=== PATIENT | female | born 1930 | race Caucasian/White ===

== ENCOUNTER 2018-01-21 01:19 | Inpatient (IN) | payer OTHER ==
[~2018-01-21] VITALS: Ht 154.9 cm; Wt 69.1 kg
[~2018-01-21 01:19] MED LIST: HYDROCHLOROTHIA50 M1 PO; LISINOPRIL20 M1 PO; LOPRESSOR100 M1 PO
[2018-01-21] MEDS ORDERED: MIRALAX17 G1 PO (13:36)
[2018-01-21] MEDS ORDERED: ASPIRIN EC325 M2 PO (13:36)
[2018-01-21] MEDS ORDERED: COLACE100 M1 PO (13:36)
[2018-01-21] MEDS ORDERED: DILAUDID2 M1 PO (13:36)
--- NOTE | 2018-01-21 13:43 | Patient Discharge Instructions ---
Discharge Instructions General Discharge Information You were seen/treated for: osteoarthritis right knee You had these procedures: right total knee replacement Watch for these problems: Increasing pain despite the use of pain medication Increasing redness, warmth or swelling Drainage of any type from incision Inability to bear weight on operative leg Persistent nausea and vomiting Fever greater than 101.5 degrees Call Surgeon to remove: [place] (wound check in 2 weekw) Other wound care: Please keep wound clean and dry. No ointments or lotions of any type on or near incision. Your dressing will be changed by your nurse on the second day after your surgery. Daily dry dressing changes are recommended each day thereafter. Do not soak your wound- no tub baths/swimming. You may shower 48hr after surgery. Special Instructions: Aspirin: You are taking this medication to help prevent blood clot formation. Please take with food to protect your stomach lining. Please take as directed. Constipation: Pain medication can cause constipation. It is recommended that you take Colace and Miralax each day. Discontinue this medication if you develop loose stool or diarrhea. If you wish to continue this medication, it is available over the counter. If you are unable to move your bowels or unable to pass gas and are developing bloating, nausea, or vomiting as a result, please contact your doctor. Diet Continue normal diet: Yes Recommended Diet: Regular Activity Full Activity/No Limits: No Activity Self Limited: Yes Activity Limited to: Walking with Assistance Acute Coronary Syndrome Inclusion Criteria At DC or during hospital stay patient has or had the following: ACS DIAGNOSIS No Discharge Core Measures Meds if any: Prescribed or Continued at Discharge Meds if any: NOT Prescribed or Continued at Discharge Congestive Heart Failure Inclusion Criteria At DC or during hospital stay patient has or had the following: CHF DIAGNOSIS No Discharge Core Measures Meds if any: Prescribed or Continued at Discharge Meds if any: NOT Prescribed or Continued at Discharge Cerebrovascular accident Inclusion Criteria At DC or during hospital stay patient has or had the following: CVA/TIA Diagnosis No Discharge Core Measures Meds if any: Prescribed or Continued at Discharge Meds if any: NOT Prescribed or Continued at Discharge Venous thromboembolism Inclusion Criteria VTE Diagnosis No VTE Type NONE VTE Confirmed by (Test) NONE Discharge Core Measures - Per Current guidelines, there needs to be overlap - treatment for the first 5 days of Warfarin therapy. - If discharged on Warfarin prior to 5 days of - overlap therapy, the patient will need to be - assessed for post discharge needs including - *Post discharge parental anticoagulation - *Warfarin and/or parental anticoagulation education - *Follow up date to check INR post discharge Meds if any: Prescribed or Continued at Discharge Note: Overlap Therapy is Warfarin and Anticoagulant Meds if any: NOT Prescribed or Continued at Discharge
--- NOTE | 2018-01-21 13:47 | Surgical Discharge Summary ---
Visit Information Visit Dates Admission Date: 01/21/18 Discharge Date: 01/24/2018 History of Present Illness Chief Complaint: right knee pain Medical History Cardiovascular: hypertension, hyperlipidemia Isolation History: Standard Surgical History Pertinent Surgical History: non-contributory Review of Systems: See H and P Hospital Course Course Attending Physician: Maxx Tillman MD Primary Care Physician: Shirley HERNANDEZ,Robert Alva Hospital Course: Patient was admitted to the hospital for an elective total joint replacement. Procedure was tolerated well and patient was transferred to a general surgical floor. Diet was advanced and tolerated. Physical therapy performed evaluation and treatment. Patient suffered from acute blood loss anemia and required a transfusion of 2 units of packed red blood cells. She responded nicely. She also had mild acute kidney injury with a creatinine of of 1.4 postop day #1, after IV fluids, this resolves, last creatinine was 0.9. At time of hospital discharge, vital signs were stable, neurovascular status was intact, and pain was controlled with the use of oral pain medications. Follow up with Dr. Tillman in 6 weeks from date of surgery. Please call his office to schedule/confirm this appointment. Complications: Acute blood loss anemia. Resolved Acute kidney injury resolved Allergies: Coded Allergies: No Known Allergies (01/16/18) Significant Procedures: right total knee replacement Pertinent Lab Results: none Disposition Summary Disposition Principal Diagnosis: right knee osteoarthritis Additional Diagnosis: Status post right total knee arthroplasty Discharge Disposition: SNF Discharge Instructions General Discharge Information Code Status: Full Code Patient's Diet: regular Patient's Activity: ad yadi, self limiting Follow-Up Instructions/Appts: [address] Tillman Medications at Discharge Discharge Medications: Continue taking these medications: Metoprolol Tartrate (Lopressor) 100 MG TABLET 1 Tablet ORAL TWICE DAILY Comments: Last Taken: 01/24/18 Time: 929 Lisinopril (Lisinopril) 20 MG TABLET 1 Tablet ORAL DAILY Comments: Last Taken: 01/24/18 Time: 929 Hydrochlorothiazide (Hydrochlorothiazide) 50 MG TABLET 1 Tablet ORAL DAILY Comments: Last Taken: 01/24/18 Time: 929 Start taking the following new medications: Aspirin (Ecotrin*) 325 MG TABLET. 1 Tablet ORAL TWICE DAILY Qty = 60 No Refills Comments: Last Taken: 01/24/18 Time: 929 Docusate Sodium (Colace) 100 MG CAPSULE 1 Capsule ORAL TWICE DAILY Qty = 14 No Refills Comments: Last Taken: 01/24/18 Time: 0930 Polyethylene Glycol 3350 (Miralax) 17 GRAM POWD.PACK 1 Packet ORAL DAILY Qty = 7 No Refills Instructions: dissolve in water Comments: Last Taken: 01/23/18 Time: 9AM Hydromorphone HCl (Dilaudid) 2 MG TABLET 1-2 Tablet ORAL EVERY 4-6 HOURS NEEDED as needed for PAIN Qty = 36 No Refills Comments: Last Taken: 01/24/18 Time: 11AM Copies To: Maxx Tillman MD
--- NOTE | 2018-01-21 13:49 | Admission Core Measures ---
Acute Coronary Syndrome (CM) ACS Core Measures Acute Coronary Syndrome Diagnosis No Congestive Heart Failure (NEW) CHF Core Measures Congestive Heart Failure Diagnosis No Cerebrovascular Accident CVA Core Measures CVA/TIA Diagnosis No Venous Thromboembolism VTE Core Justin (View Protocol) VTE Risk Factors Surgery No Mechanical VTE Prophylaxis d/t N/A MechProphylax Ordered No VTE Pharm Prophylaxis d/t NA PharmProphylax ordered Problem List As ranked by this Provider includes Assessment & Plan 1. Localized osteoarthritis of right knee HOME MEDS Home Med List Aspirin (Ecotrin*) 325 MG TABLET.DR 1 TAB PO BID DVT PROPHALAXIS Docusate Sodium (Colace) 100 MG CAPSULE 1 CAP PO BID PREVENT CONSTIPATION Hydrochlorothiazide 50 MG TABLET 1 TAB PO DAILY BP (Reported) Hydromorphone HCl (Dilaudid) 2 MG TABLET 1-2 TAB PO Q4-6 PRN PRN PAIN Lisinopril 20 MG TABLET 1 TAB PO DAILY BP (Reported) Metoprolol Tartrate (Lopressor) 100 MG TABLET 1 TAB PO BID BP (Reported) Polyethylene Glycol 3350 (Miralax) 17 GRAM POWD.PACK 1 PAC PO DAILY PREVENTION CONSTIPATION
--- NOTE | 2018-01-21 14:12 | Operative Report ---
Operative/Inv Procedure Report Surgery Date: 01/21/18 Name of Procedure: Right total knee replacement Pre-Operative Diagnosis: Primary right knee DJD Post-Operative Diagnosis: Same Estimated Blood Loss: 50ml to 100ml Surgeon/Home Based Assistant: Layne HERNANDEZ,Maxx Ghotra Anesthesia: block Operative/Procedure Note Note: Description of Procedure: The patient was taken to the operating room and positively identified. After induction of spinal anesthesia and administration of appropriate pre-operative antibiotics, the patient was positioned supine on the operating room table and all bony prominences were well padded. A well-padded pneumatic tourniquet was placed on the right upper thigh. After performing a surgical timeout, the right lower extremity was prepped and draped in the usual sterile fashion. After exsanguination with Esmarch the tourniquet was inflated to 250mm of mercury. A standard medial parapatellar approach was made to the knee. This was carried down through skin and subcutaneous tissue to the level of the fascia. Meticulous hemostasis was maintained with Bovie electrocautery. The extensor mechanism and patellar retinaculum were opened sharply and the patella was everted. The infrapatellar fat was resected in order to improve exposure. Osteophytes were trimmed from the patella and femoral condyles and the patella was re-everted and tucked laterally. A medial release was performed and the cruciate ligaments were resected. The tibia was then subluxed anteriorly. Utilizing the appropriate extra-medullary guide, the proximal tibia was trimmed perpendicular to the long axis of the tibial shaft. Attention was then turned to the femur. After opening the medullary canal, the distal femoral cut was made in 6 degrees of valgus utilizing the appropriate intra-medullary guide. The extension gap was checked and found to be appropriate. The femur was then sized and the remainder of the femoral cuts were made with a size 3 4-in-1 femoral cutting guide. The flexion gap was checked and found to be symmetric and appropriate. The knee was then trialed with a size 3 femoral component, a size 3 tibial component and a size 13 mm TS polyethylene insert. The patella was not resurfaced due to its excellent preoperative condition. This yielded excellent range of motion, stability and patellar tracking. All trial components were removed and the knee was copiously irrigated with sterile saline. All components were cemented into place with Jade Simplex cement. All the components were of the [employer] knee system of the above stated sizes. The knee was again irrigated after cementation. The extensor mechanism and patellar retinaculum were repaired using interrupted #1 vicryl suture. The skin was re-approximated with 2-0 vicryl and closed with alicia. A sterile dressing was applied, the tourniquet was deflated, the patient was awakened and taken to the recovery room in satisfactory condition.
[2018-01-21 16:30] VITALS: BP 188/75
--- NOTE | 2018-01-21 17:24 | PN- Student ---
DamienbarakBooker 01/21/18 1703: Subjective Subjective: Post Op Check mild pain localized to right knee 2/10. Feels nauseous and wants to vomit. No chest pain, no shortness of breath, no abdominal pain, no calf pain. Objective Objective: Vitals: Temp: 98.0 Pulse Rate: 75 Respiratory Rate: 20 BP: 188/75 Physical Exam: Mildly ill appearing patient. vomited billious material during exam. oriented to time and place Heart: s1 and s2, RRR lungs: clear to auscultation bilaterally Abdomen: soft, non tender Extremities: gross sensation intact bilaterally. capillary refill 2 seconds bilaterally. Motor strength 5/5 in dorsi/plantarflexion bilaterally, 3/5 in right straight leg raise and 5/5 in left straight leg raise. Dressing clean, dry and intact. Ice pack in place over dressing. Assessment/Plan Assessment: 87 year old female post op day 0 for right total knee replacement. Has post op nausea, but doing okay overall. Plan: Zofran prn for nausea Alps and ASA 325 for DVT prophylaxis IV fluids Cefazolin IV for post op prophylaxis Continue pain control regimine Continue home meds Weight bearing as tolerated Flaca Mobley 01/21/18 1727: Assessment/Plan Plan: Pt seen and examined Post op nausea - vomited times one - now resolved and tolerating liquids awaiting tray Complaining of surgical site pain - RN is about to hang IV tylenol - will start with that and instructed pt to ask for dilaudid if needed PT in am - WBAT home dose of bp meds ordered - will be administering tonight
[2018-01-21 18:32] VITALS: BP 173/65
[2018-01-21 20:17] VITALS: BP 150/66
[2018-01-21 22:01] VITALS: BP 142/61
[2018-01-22 00:18] VITALS: BP 136/62
[2018-01-22 04:07] VITALS: BP 142/55
--- NOTE | 2018-01-22 07:24 | PN- Student ---
Booker Caicedo 01/22/18 0710: Subjective Subjective: Mild right knee pain. Has not been out of bed since surgery. Mild nausea, but no vomiting since yesterday. No abdominal pain. No chest pain, no shortness of breath, calf pain. Objective Objective: Vitals: Temp: 98.3 Pulse: 78 respiratory rate: 20 BP: 142/55 Pulse Ox: 93% on Room air Physical Exam: General: no acute distress. patient alert and oriented to time and place Heart: s1 and s2, RRR Lungs: clear to auscultation bilaterally Abdomen: soft, bowel sounds present, non-tender Extremities: mild tenderness around surgical site. Dressing is clean, dry and intact. capillary refill is 2 seconds on toes bilaterally. gross sensation is intact bilaterally. Motor strength for dorsi/plantar flexion is 5/5 bilaterally and motor strength for straight leg raise is 3/5 on the right and 5/5 on the left. Results Results: Laboratory Tests 01/22/18 0630: Sodium Pending, Potassium Pending, Chloride Pending, Carbon Dioxide Pending, Anion Gap Pending, BUN Pending, Creatinine Pending, BUN/Creatinine Ratio Pending , CBC w Diff Pending, WBC Pending, RBC Pending, Hgb Pending, Hct Pending, MCV Pending, MCH Pending, MCHC Pending, RDW Pending, Plt Count Pending, MPV Pending Assessment/Plan Assessment: 87 year old female post op day 1 for right total knee replacement with post op nausea and vomiting and mild surgical site pain. Patient is improving with reduced nausea and pain. Plan: Eval with PT Continue pain control regimine as needed Continue home BP meds Continue ALPS and ASA for DVT prophylaxis Prophylactic Abx for a total of 24 hours Continue Herbert Rebollar 01/22/18 1626: Subjective Subjective: agree with above transfuse 2 uprbcs fro speedy op blood loss and hgb of 7.6 and dizziness with ambulation continue all others f/u post transfusion labs in am
[2018-01-22 08:03] LABS: ABSOLUTE BASOPHIL COUNT 0 /CUMM (0.0-0.2); ABSOLUTE EOSINOPHIL COUNT 0.1 /CUMM (0.0-0.7); ABSOLUTE GRANULOCYTE CT 6.1 /CUMM (1.4-6.5); ABSOLUTE LYMPH COUNT 0.6 /CUMM (1.2-3.4); ABSOLUTE MONOCYTE COUNT 2.3 /CUMM (0.10-0.60); BASOPHIL % 0 % (0.0-2.0); EOSINOPHIL % 0.7 % (0-5); GRANULOCYTE % 66.9 % (42.2-75.2); HEMATOCRIT 22.7 % (37-47); MEAN CORPUSCULAR HGB CONC 33.4 G/DL (33.0-37.0); MEAN CORPUSCULAR VOLUME 86.8 FL (81.0-99.0); MEAN PLATELET VOLUME 11.1 FL (7.4-10.4); RBC DISTRIBUTION WIDTH 17.5 % (11.5-14.5); RED BLOOD CELL CT 2.62 /CUMM (4.20-5.40); WHITE BLOOD CELL COUNT 9.1 /CUMM (4.8-10.8)
[2018-01-22 08:29] LABS: PLATELET COUNT 66 /CUMM (130-400)
--- NOTE | 2018-01-22 08:46 | PN- Orthopedic ---
Subjective Subjective: POD#1 S/P RIGHT TKA C/O NAUSEA BUT NO VOMITING DENIES CP, SOB HAS NOT AMBULATED WITH PT YET Objective Vital Signs and I&Os Vital Signs Date Time Temp Pulse Resp B/P B/P Pulse O2 O2 Flow FiO2 Mean Ox Delivery Rate 06/ 0805 80 148/72 / 0407 98.3 78 20 142/55 93 Room Air / 0018 98.0 80 20 136/62 94 Room Air 01/21 2201 97.6 77 18 142/61 91 01/21 2017 78.0 78 18 150/66 93 01/21 2013 97.5 78 18 150/66 01/21 1832 97.4 76 18 173/65 91 01/21 1630 98.0 75 20 188/75 Intake & Output / 1600 01/22 0800 01/22 0000 01/21 1600 01/21 0800 01/21 0000 Intake Total 900 660 Output Total 400 250 Balance 500 410 Intake, IV 600 300 Intake, Oral 300 360 Output, Urine 400 250 Patient 146 lb 146 lb Weight Weight Bed scale Bed scale Measurement Method Physical Exam: CV: RRR LUNGS: CLEAR ABD: SOFT, +BS EXT: DRSG DRY DISTAL CMS INTACT Assessment/Plan Assessment/Plan ORTHO STABLE POST OP HEMMORHAGIC ANEMIA CR 1.4(PEROP 1.05) PLAN CONT OOB WITH PT IF SYMPTOMATIC WILL TRANSFUSE PRBC'S TITRATE PAIN MEDS ADVANCE DIET TOLERATED HOME D/C PLANNING Core Measures Venous Thromboembolism VTE Risk Factors Surgery No Mechanical VTE Prophylaxis d/t N/A MechProphylax Ordered No VTE Pharm Prophylaxis d/t NA PharmProphylax ordered
[2018-01-22 10:21] VITALS: BP 140/60
[2018-01-22 14:39] VITALS: BP 130/60
[2018-01-22 21:51] VITALS: BP 134/60
[2018-01-23 02:02] VITALS: BP 135/60
--- NOTE | 2018-01-23 07:08 | PN- Orthopedic ---
Subjective Subjective: POD#2 S/P LEFT TKA NO MAJOR ISSUES OVERNIGNT DENIES CP, SOB, LESS NAUSEA NO VOMITING TOLERATING DIET PRIMARY COMPLAINT LEFT KNEE PAIN TRANSFUSE 2 UPRBC'S YESTERDAY FOR POST OP ANEMIA Objective Vital Signs and I&Os Vital Signs Date Time Temp Pulse Resp B/P B/P Pulse O2 O2 Flow FiO2 Mean Ox Delivery Rate 01/23 0202 99.0 89 20 135/60 90 Room Air 01/22 2151 99.2 90 18 134/60 93 Room Air 01/22 2044 99.2 90 20 134/60 / 1439 97.8 69 18 130/60 93 01/22 1021 98.0 74 20 140/60 93 01/22 0805 80 148/72 Intake & Output 01/23 0800 01/23 0000 01/22 1600 01/22 0800 01/22 0000 01/21 1600 Intake Total 940 1000 1500 900 660 Output Total 450 500 400 400 250 Balance 184 496 8586 500 410 Intake, Blood 700 Product Intake, IV 600 600 300 Intake, Oral 362 577 1773 300 360 Output, Urine 450 500 400 400 250 Patient 146 lb 146 lb Weight Weight Bed scale Bed scale Measurement Method Physical Exam: CV: RRR LUNGS: CLEAR ABD: SOFT, +BS EXT: DRSG CHANGED, WOUND C/D/I NO CALF TENDERNESS DISTAL CMS INTACT Assessment/Plan Assessment/Plan ORTHO STABLE PLAN CONT OOB WITH PT TITRATE PAIN MEDS F/U AM LABS HOME D/C PLANNING Core Measures Venous Thromboembolism VTE Risk Factors Surgery No Mechanical VTE Prophylaxis d/t N/A MechProphylax Ordered No VTE Pharm Prophylaxis d/t NA PharmProphylax ordered
[2018-01-23 08:14] LABS: MEAN CORPUSCULAR HGB CONC 34.4 G/DL (33.0-37.0)
[2018-01-23 08:35] LABS: MEAN CORPUSCULAR HGB 29.8 PG (27.0-31.0); MEAN CORPUSCULAR VOLUME 86.6 FL (81.0-99.0); MEAN PLATELET VOLUME 12.2 FL (7.4-10.4); RBC DISTRIBUTION WIDTH 17.1 % (11.5-14.5); WHITE BLOOD CELL COUNT 9.9 /CUMM (4.8-10.8)
[2018-01-23 08:40] LABS: HEMATOCRIT 29.3 % (37-47); PLATELET COUNT 65 /CUMM (130-400); RED BLOOD CELL CT 3.39 /CUMM (4.20-5.40)
[2018-01-23 09:00] VITALS: BP 140/60
[2018-01-23 14:24] VITALS: BP 112/53
[2018-01-23 21:54] VITALS: BP 144/51
[2018-01-24 05:58] VITALS: BP 163/65
--- NOTE | 2018-01-24 07:58 | PN- Orthopedic ---
Subjective Subjective: Pain much improved, no acute events overnight, no fever no flulike illness, she is feeling well. Objective Vital Signs and I&Os Vital Signs Date Time Temp Pulse Resp B/P B/P Pulse O2 O2 Flow FiO2 Mean Ox Delivery Rate 01/24 0558 98.5 84 20 163/65 96 Room Air 01/23 2154 98.4 75 20 144/51 92 01/23 1956 76 130/60 01/23 1424 97.8 68 20 112/53 93 01/23 1314 Room Air 01/23 0900 98.6 80 18 140/60 91 Room Air 01/23 0855 98.6 82 18 140/60 01/23 0855 80 140/60 01/23 0800 Room Air Intake & Output 01/24 0801/24 0000 01/23 1600 01/23 0801/23 0000 01/22 1600 Intake Total 180 180 496 728 0748 1500 Output Total 350 350 450 500 400 Balance -170 180 350 159 333 7858 Intake, Blood 700 Product Intake, IV 600 Intake, Oral 180 180 700 809 194 3488 Output, Urine 350 350 450 500 400 Patient 152 lb Weight Physical Exam: Well-developed well-nourished no apparent distress. HEENT: Atraumatic, extraocular motion intact Neck: Supple, no lymphadenopathy Respiratory: No respiratory distress Extremities: No edema RIGHT lower extremity dressing in place, Incision line is clean dry and intact No signs of infection. Mild joint effusion Range of motion is 0-45. Compression wrap in place. ALPS in place Neurovascularly intact distally Bilateral calves are supple, nontender. Neuro: Alert and oriented x3 Psych: Mood affect normal, normal memory normal judgment. Skin: Warm and dry, no rash on exposed skin Results Last 48 Hours of Labs: Laboratory Tests 01/23 06 Chemistry Sodium (137 - 145 mmol/L) 133 L Potassium (3.5 - 5.1 mmol/L) 3.8 Chloride (98 - 107 mmol/L) 95 L Carbon Dioxide (22 - 30 mmol/L) 27 Anion Gap (5 - 16) 10 BUN (7 - 17 mg/dL) 30 H Creatinine (0.5 - 1.0 mg/dL) 0.9 Estimated GFR (>60 ml/min) 60 BUN/Creatinine Ratio (7 - 25 %) 33.3 H Hematology CBC w Diff MAN DIFF ORDERED WBC (4.8 - 10.8 /CUMM) 9.9 RBC (4.20 - 5.40 /CUMM) 3.39 L Hgb (12.0 - 16.0 G/DL) 10.1 L Hct (37 - 47 %) 29.3 L MCV (81.0 - 99.0 FL) 86.6 MCH (27.0 - 31.0 PG) 29.8 MCHC (33.0 - 37.0 G/DL) 34.4 RDW (11.5 - 14.5 %) 17.1 H Plt Count (130 - 400 /CUMM) 65 L MPV (7.4 - 10.4 FL) 12.2 H Segmented Neutrophils (42.2 - 75.2 %) 42 L Band Neutrophils (0.0 - 5.0 %) 1 Lymphocytes (20.5 - 51.1 %) 27 Monocytes (1.7 - 9.3 %) 30 H Nucleated RBCs (0.0 - 0.0 /100WBC) 1 H Platelet Estimate (ADEQUATE) DECREASED Hypochromic-Microcytic 2+ Poikilocytosis 2+ Anisocytosis 1+ Assessment/Plan Assessment/Plan Postop day #3 status post right total knee arthroplasty Pain medication as needed. Out of bed Physical therapy, weightbearing as tolerated Aspirin for DVT prophylaxis ALPS for DVT prophylaxis Regular home meds Dressing change daily, dry sterile dressing Acute blood loss anemia, resolved after 2 units transfusion, patient stable Acute kidney injury, resolved Disposition: Patient believes she requires a residential facility, will discuss with case management, stable for discharge today Core Measures Venous Thromboembolism VTE Risk Factors Surgery No Mechanical VTE Prophylaxis d/t N/A MechProphylax Ordered No VTE Pharm Prophylaxis d/t NA PharmProphylax ordered
[2018-01-24 11:10] VITALS: BP 140/58
[2018-01-24 11:34] VITALS: BP 140/58
[2018-01-24 11:54] VITALS: BP 118/70
[2018-01-24 13:55] VITALS: BP 130/80
== END 2018-01-24 14:36 | DRG 470 ==
LOC: SDA 01:19 → ENRESERV 14:28 → ENTRNSPT 15:56 → EDTRNSPTSTS 16:30 → EDTRNSPT 16:30 → 2NA 16:35 → CMPTRNSPT 16:43 → ENPENDDIS 01-24 08:03 → 2NA 01-24 14:36
PROVIDERS: Physician Assistant
PROC: 3E0T3BZ Introduction of Anesthetic Agent into Peripheral Nerves and Plexi, Percutaneous Approach (ICD-10-PCS; 2018-01-21)
PROC: 0SRC0J9 Replacement of Right Knee Joint with Synthetic Substitute, Cemented, Open Approach (ICD-10-PCS; 2018-01-21)
PROC: 30233N1 Transfusion of Nonautologous Red Blood Cells into Peripheral Vein, Percutaneous Approach (ICD-10-PCS; principal; 2018-01-22)
DX: M17.11 Unilateral primary osteoarthritis, right knee (principal); D62 Acute posthemorrhagic anemia; E78.5 Hyperlipidemia, unspecified; I10 Essential (primary) hypertension; F41.9 Anxiety disorder, unspecified; E11.9 Type 2 diabetes mellitus without complications; Z90.49 Acquired absence of other specified parts of digestive tract
CPT/HCPCS: 2NAP; 36592; 82436; 86920; 97110-GO; 97116-GO; 97530-GO; C1713; J0131; J0690; J2405; J7042; P9016